=== PATIENT | female | born 1975 | race Caucasian/White ===

== ENCOUNTER 2021-10-08 09:12 | Outpatient (CLI) | payer OTHER ==
--- NOTE | 2021-10-08 11:07 | Ultrasound Report ---
PROCEDURE: Pelvic w/Transvaginal INDICATIONS: OLIGOMENORRHEA TECHNIQUE: Real-time scanning was performed of the pelvic organs, with image documentation. Additional endovagi nal scanning was necessary due to incomplete visualization of the adnexal and endometrial structures by transabdominal scanning. COMPARISON: None. FINDINGS: The uterine body measures 3.1 x 4.3 x 8.0 cm. Coarsened uterine echotexture. No uterine mass identifi ed. Normal thickness endometrium measuring 10 mm in double layer thickness. Multiple cervical nabothian cysts noted. Right ovary measures 1.1 x 1.3 x 2.9 cm. Multiple right ovarian follicles with a dominant follicle me asuring 1.3 cm. Left ovary measures 2.4 x 2.8 x 3.6 cm. Multiple left ovarian follicles with a dominant cyst/follicle measuring 2.4 cm. IMPRESSION: Bilateral ovarian physiologic/follicular cysts, including dominant follicles as described above. Coarsened uterine echotexture may indicate adenomyosis. No uterine mass. Reviewed by: Blake Mendoza MD on 10/08/2021 11:05 AM PST Approved by: Blake Mendoza MD on 10/08/2021 11:05 AM PST Station ID: [id number]
== END 2021-10-08 09:13 | disposition home or self-care (01) ==
LOC: DI 09:12
PROVIDERS: ATTEND Obstetrics & Gynecology
DX: N91.5 Oligomenorrhea, unspecified (principal); N83.02 Follicular cyst of left ovary; N83.01 Follicular cyst of right ovary

== ENCOUNTER 2021-10-27 08:56 | Outpatient (CLI) | payer OTHER ==
--- NOTE | 2021-10-27 17:07 | Ultrasound Report ---
PROCEDURE: Pelvic w/Transvaginal INDICATIONS: OLIGOMENORRHEA TECHNIQUE: Real-time scanning was performed of the pelvic organs, with image documentation. Additional endovagi nal scanning was necessary due to incomplete visualization of the adnexal and endometrial structures by transabdominal scanning. COMPARISON: 10/08/2021.. FINDINGS: No pathologic free abdominal or pelvic fluid. Uterus: Uterus is normal in size at 6.3 x 3.0 x 3.6 cm. Uterus is slightly heterogeneous echotexture . The endometrium measures 2.5. mm in combined thickness. There is a small 0.6 x 0.5 x 0.5 cm mid pos terior intramural fibroid. Incidental note made of 8 mm in maximum diameter nabothian cysts. Ovaries: Not of the right and left ovaries are identified and cannot be evaluated. IMPRESSION: 1. Small less than 1 cm uterine fibroid. 2. Endometrial thickness is normal. 3. Slightly heterogeneous uterine echotexture possibly related to adenomyosis. 3. Ovaries not identified and cannot be evaluated. Reviewed by: Roberta Molina MD, PhD on 10/27/2021 5:06 PM PST Approved by: Roberta Molina MD, PhD on 10/27/2021 5:06 PM PST Station ID: [id number]
== END 2021-10-27 08:57 | disposition home or self-care (01) ==
LOC: DI 08:56
PROVIDERS: ATTEND Obstetrics & Gynecology
DX: D25.1 Intramural leiomyoma of uterus (principal); N91.5 Oligomenorrhea, unspecified